=== PATIENT | male | born 1990 | race Two or more races ===

== ENCOUNTER 2024-04-02 18:51 | Emergency (ER) | payer MEDICAID, OTHER ==
[~2024-04-02] VITALS: Ht 182.9 cm; Wt 65.8 kg
[2024-04-02 20:34] LABS: APPEARANCE,URINE CLEAR (CLEAR); BILIRUBIN,URINE NEGATIVE (NEGATIVE); BLOOD, URINE NEGATIVE Ery/uL (NEGATIVE); COLOR,URINE YELLOW (YELLOW); KETONES,URINE NEGATIVE (NEGATIVE); LEUKOCYTE ESTERASE ,URINE NEGATIVE (NEGATIVE); NITRITE, URINE NEGATIVE (NEGATIVE); PROTEIN,URINE NEGATIVE (NEGATIVE); UGLUCOSE NEGATIVE (NEGATIVE); UROBILINOGEN,URINE 0.2 EU/dL (0.2)
[2024-04-02 21:35] VITALS: BP 102/65; TEMP 98.2; O2SAT 97
== END 2024-04-02 21:35 | disposition home or self-care (01) ==
LOC: ER 18:55
DX: R35.0 Frequency of micturition (principal)